=== PATIENT | male | born 1995 | race African-American/Black ===

== ENCOUNTER 2022-01-25 07:58 | Emergency (ER) | payer BC ==
[2022-01-25] MEDS ORDERED: Acetaminophen 500 MG TAB ONE (08:22)
[2022-01-25] MEDS ORDERED: Ibuprofen 200 MG TAB ONE (08:22)
== END 2022-01-25 08:53 | disposition home or self-care (01) ==
LOC: CSHERS 07:58
DX: R07.9 Chest pain, unspecified (principal)
CPT/HCPCS: 71045; 93005